=== PATIENT | female | born 1960 | race Caucasian/White ===

== ENCOUNTER → 2016-04-30 | Outpatient (CLI) | payer BC ==
[~2016-04-30] MED LIST: ACHD5005 PO; ALPR.5T PO; AMOX-355 PO; HYDR-3729 PO; IBUP-1780 PO; PRD20T PO
--- NOTE | 2016-04-30 15:51 | Diagnostic Imaging Report ---
INDICATION: Hematuria, feeling ill x 1 week, right-sided lower back pain, evaluate for kidney stones. FINDINGS: A supine view of the abdomen demonstrates no radiopaque calcifications. The bowel gas pattern appears normal. The lung bases are clear. The osseous structures are normal. IMPRESSION: Normal KUB. Dictated by: Dictated on workstation # [id number]
== END ==
LOC: RAD 13:32
PROVIDERS: ATTEND Nurse Practitioner Family
DX: R31.9 Hematuria, unspecified (principal)
CPT/HCPCS: 74000

== ENCOUNTER → 2016-05-02 | Outpatient (CLI) | payer BC ==
--- NOTE | 2016-05-02 11:57 | Diagnostic Imaging Report ---
Transabdominal and transvaginal pelvic ultrasound. INDICATION: Postmenopausal bleeding. FINDINGS: The endometrium thickness is at the upper limits of normal, at 4 mm in thickness. The uterus is 6.5 x 4.5 x 3.5 cm. There is slight heterogeneity in the myometrium with multiple hyperechoic foci and there is a tiny simple-appearing cyst in the posterior myometrium adjacent to endometrium. The findings may relate to adenomyosis. The ovaries are not seen. This could be related to ovarian atrophy or obscured by bowel gas. There is however a simple-appearing cyst in the left adnexa measuring 2.3 x 2.7 x 1.8 cm which may or may not be ovarian in origin. No solid component is identified. IMPRESSION: Uterine findings may relate to adenomyosis. Dictated by: Dictated on workstation # [id number]
== END ==
LOC: RAD 09:56
PROVIDERS: ATTEND Nurse Practitioner Family
DX: N95.0 Postmenopausal bleeding (principal)
CPT/HCPCS: 76830; 76856

== ENCOUNTER 2016-06-12 08:31 | Outpatient (CLI) | payer BC ==
[~2016-06-12] VITALS: Ht 167.6 cm; Wt 69.7 kg
[~2016-06-12 08:31] MED LIST changes: -HYDR-3729 PO; -IBUP-1780 PO
--- OUTSIDE RECORDS SUMMARY | 2016-06-12 08:35 | XMS REPORT | Continuity of Care Document ---
Author Author [facility] Organization [facility] Address Unknown Phone Unavailable Allergies Active Description Code Type Severity Reaction Onset Reported/Identified Relationship to Patient Clinical Status Yes desloratadine [id number] Drug Allergy Unknown N/A 10/26/2012 Yes pseudoephedrine sulfate [id number] Drug Allergy Unknown N/ A 10/26/2012 Medications Problems Date Dx Coded Attending Type Code Diagnosis Diagnosed By 10/29/2012 GREG MACIEL, LARS P Ot 473.0 CHR MAXILLARY SINUSITIS 10/29/2012 GREG MACIEL, LARS P Ot 473.1 CHR FRONTAL SINUSITIS 10/29/2012 GREG MACIEL, LARS Daley Ot 473.2 CHR ETHMOIDAL SINUSITIS 03/03/2014 SIRISHA GUPTA Ot 793.89 09/25/2014 RYAN MONAE Ot 473.9 09/25/2014 GREG MACIEL, LARS P Ot 305.1 09/25/2014 GREG MACIEL, ALRS P Ot 471.8 09/25/2014 GREG MACIEL, LARS P Ot 780.79 09/25/2014 GREG MACIEL, LARS P Ot V72.63 09/25/2014 GREG MACIEL, LARS P Ot V72.81 09/25/2014 GREG MACIEL, LARS P Ot V72.83 09/25/2014 GREG MACIEL, LARS P Ot V74.8 09/25/2014 RUSLAN MACIEL, NATE Real Ot 620.2 09/25/2014 RUSLAN MACIEL, NATE A Ot 627.1 09/25/2014 RUSLAN MACIEL, NATE A Ot 793.5 09/25/2014 JUAN DO, COURTNEY C Ot 620.2 09/25/2014 JUAN DO, COURTNEY C Ot 627.1 09/25/2014 MARTINEZ DO, COURTNEY C Ot 793.5 09/25/2014 JUAN DO, COURTNEY C Ot V16.0 09/25/2014 JUAN DO, COURTNEY C Ot V16.49 09/25/2014 SIRISHA GUPTA TRAINING AND DEVELOPMENT REP Ot V76.12 09/25/2014 SIRISHA GUPTA TRAINING AND DEVELOPMENT REP Ot 793.89 10/13/2014 NATE MERCER MD Ot 793.89 11/03/2014 NATE MERCER MD Ot 611.79 11/03/2014 NATE MERCER MD Ot V58.69 05/02/2015 TEX LITTLEJOHN BERRY PICKER Ot Z12.31 04/30/2016 RYAN MONAE RPA-C Ot 473.9 CHRONIC SINUSITIS NOS 04/30/2016 GREG MACIEL, LARS Daley Ot 305.1 TOBACCO USE DISORDER 04/30/2016 GREG MACIEL, LARS Daley Ot 471.8 NASAL SINUS POLYP NEC 04/30/2016 LARS GARZA MD Ot 780.79 OTH MALAISE FATIGUE 04/30/2016 GREG MACIEL, LARS Daley Ot V72.63 PRE-PROCEDURAL LABORATORY EXAMINATION 04/30/2016 LARS GARZA MD Ot V72.81 [id number] CARDIOVASCULAR 04/30/2016 LARS GARZA MD Ot V72.83 EXAM PRE-OPERATIVE NEC 04/30/2016 LARS GARZA MD Ot V74.8 SCREEN-BACTERIAL DIS NEC 04/30/2016 NATE MERCER MD Ot 620.2 OVARIAN CYST NEC/NOS 04/30/2016 NATE MERCER MD Ot 627.1 POSTMENOPAUSAL BLEEDING 04/30/2016 NATE MERCER MD Ot 793.5 NOSP (ABN) FINDINGS ON RADIOLOGICAL OT 04/30/2016 COURTNEY MARTINEZ DO Ot 620.2 OVARIAN CYST NEC/NOS 04/30/2016 COURTNEY MARTINEZ DO Ot 627.1 POSTMENOPAUSAL BLEEDING 04/30/2016 COURTNEY MARTINEZ DO Ot 793.5 NOSP (ABN) FINDINGS ON RADIOLOGICAL OT 04/30/2016 COURTNEY MARTINEZ DO Ot V16.0 FAMILY HX-GI MALIGNANCY 04/30/2016 COURTNEY MARTINEZ DO Ot V16.49 FAM HX-OTH MALIG NEOPLASM 04/30/2016 SIRISHA GUPTAP Ot V76.12 OTH SCREEN MAMMO-MALIGN NEOPLASM OF JONATHAN 04/30/2016 SIRISHA GUPTAP Ot 793.89 OTH (ABN) FINDINGS ON RADIOLOGICAL EXAMI 04/30/2016 NATE MERCER MD Ot 793.89 OTH (ABN) FINDINGS ON RADIOLOGICAL EXAMI 04/30/2016 NATE MERCER MD Ot 611.79 SYMPTOMS IN BREAST NEC 04/30/2016 NATE MERCER MD Ot V58.69 OTH MED,LT,CURRENT USE 04/30/2016 TEX LITTLEJOHN APRN Ot Z12.31 ENCNTR SCREEN MAMMOGRAM FOR MALIGNANT NE 05/01/2016 TEX LITTLEJOHN BERRY PICKER Ot R31.9 HEMATURIA, UNSPECIFIED 05/02/2016 SIRISHA GUPTA TRAINING AND DEVELOPMENT REP Ot N95.0 POSTMENOPAUSAL BLEEDING 05/03/2016 SIRISHA GUPTA TRAINING AND DEVELOPMENT REP Ot N95.0 POSTMENOPAUSAL BLEEDING 05/05/2016 SIRISHA GUPTA TRAINING AND DEVELOPMENT REP Ot N95.0 POSTMENOPAUSAL BLEEDING 05/14/2016 TEX LITTLEJOHN BERRY PICKER Ot R31.9 HEMATURIA, UNSPECIFIED 05/14/2016 SIRISHA GUPTA TRAINING AND DEVELOPMENT REP Ot N95.0 POSTMENOPAUSAL BLEEDING Procedures Results Encounters ACCT No. Visit Date/Time Discharge Status Pt. Type Provider Facility Loc./Unit Complaint [id number] 10/18/2014 11:01:00 2014 23:59:59 CLS Outpatient NATE MERCER MD [facility] RAD LEFT BREAST POST NIPPLE ABNORMALITY [id number] 09/25/2014 14:09:00 2014 23:59:59 CLS Outpatient NATE MERCER MD [facility] RAD 6 MONTH FOLLOW UP [id number] 02/17/2014 07:43:00 2013 23:59:59 CLS Outpatient SIRISHA GUPTA [facility] RAD ABN MAMMO,CALCIFICATIONS LT BREAST [id number] 02/01/2014 15:27:00 2013 23:59:59 CLS Outpatient SIRISHA GUPTA [facility] RAD SCREENING [id number] 11/22/2013 13:08:00 2013 23:59:59 CLS Outpatient COURTNEY MARTINEZ DO [facility] RAD POSTMENOPAUSAL BLEEDING [id number] 10/13/2013 10:56:00 2013 23:59:59 CLS Outpatient NATE MERCER MD [facility] RAD POST JASON BLEEDING [id number] 10/29/2012 08:59:00 2012 13:27:00 DIS Outpatient LARS GARZA MD [facility] SDC NASAL POLYP [id number] 10/26/2012 09:53:00 2012 23:59:59 CLS Outpatient LARS GARZA MD [facility] PREOP NASAL POLYP [id number] 10/07/2012 15:08:00 2012 23:59:59 CLS Outpatient RYAN MONAE [facility] RAD CHRONIC SINUSITIS [id number] 05/02/2016 09:56:00 ACT Outpatient SIRISHA GUPTA [facility] RAD POST MENOPAUSAL VAGINAL BLEEDING [id number] 04/30/2016 13:32:00 ACT Outpatient TEX LITTLEJOHN APRN [facility] RAD HEMATURIA [id number] 04/24/2015 10:20:00 ACT Outpatient TEX LITTLEJOHN APRN [facility] RAD ROUTINE MAMMOGRAM SCREENING
[2016-06-12 08:52] VITALS: BP 137/91
== END 2016-06-12 11:37 | disposition home or self-care (01) ==
LOC: PREOP 08:31
PROVIDERS: ATTEND Obstetrics & Gynecology
DX: Z01.818 Encounter for other preprocedural examination (principal); Z11.2 Encounter for screening for other bacterial diseases; N95.0 Postmenopausal bleeding
CPT/HCPCS: 87081

== ENCOUNTER 2016-06-16 06:00 | Day surgery (SDC) | payer BC ==
[~2016-06-16] VITALS: Ht 167.6 cm; Wt 69.7 kg
--- OUTSIDE RECORDS SUMMARY | 2016-06-16 06:10 | XMS REPORT | Continuity of Care Document ---
Author Author [facility] Organization [facility] Address Unknown Phone Unavailable Allergies Active Description Code Type Severity Reaction Onset Reported/Identified Relationship to Patient Clinical Status Yes desloratadine [id number] Drug Allergy Unknown N/A 10/26/2012 Yes pseudoephedrine sulfate [id number] Drug Allergy Unknown N/ A 10/26/2012 Medications [...] LARS P Ot 305.1 09/25/2014 GREG MACIEL, LARS P Ot 471.8 09/25/2014 GREG MACIEL, LARS [...] JUAN DO, COURTNEY C Ot 620.2 09/25/2014 JAUN DO, COURTNEY C Ot 627.1 09/25/2014 MARTINEZ DO, COURTNEY C Ot 793.5 09/25/2014 JUAN DO, COURTNEY C Ot V16.0 09/25/2014 JUAN DO, COURTNEY C Ot V16.49 09/25/2014 SIRISHA GUPTA STOCKROOM ATTENDANT Ot V76.12 09/25/2014 SIRISHA GUPTA STOCKROOM ATTENDANT Ot 793.89 10/13/2014 NATE MERCER MD Ot 793.89 11/03/2014 NATE MERCER MD Ot 611.79 11/03/2014 NATE MERCER MD Ot V58.69 05/02/2015 TEX LITTLEJOHN PELLET MACHINE OPERATOR Ot Z12.31 04/30/2016 RYAN MONAE RPA-C Ot 473.9 CHRONIC SINUSITIS NOS 04/30/2016 GREG MACIEL, LARS Daley Ot 305.1 TOBACCO USE DISORDER 04/30/2016 GREG MACIEL, LARS Daley Ot 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.8 NASAL SINUS POLYP NEC 04/30/2016 LARS GARZA MD Ot 780.79 OTH MALAISE FATIGUE 04/30/2016 GREG MACIEL, LARS Daley Ot V72.63 PRE-PROCEDURAL LABORATORY EXAMINATION 04/30/2016 LARS GARZA MD Ot V72.81 [id number] CARDIOVASCULAR 04/30/2016 LARS GARZA MD Ot V72.83 [...] MAMMOGRAM FOR MALIGNANT NE 05/01/2016 TEX LITTLEJOHN PELLET MACHINE OPERATOR Ot R31.9 HEMATURIA, UNSPECIFIED 05/02/2016 SIRISHA GUPTA STOCKROOM ATTENDANT Ot N95.0 POSTMENOPAUSAL BLEEDING 05/03/2016 SIRISHA GUPTA STOCKROOM ATTENDANT Ot N95.0 POSTMENOPAUSAL BLEEDING 05/05/2016 SIRISHA GUPTA STOCKROOM ATTENDANT Ot N95.0 POSTMENOPAUSAL BLEEDING 05/14/2016 TEX LITTLEJOHN PELLET MACHINE OPERATOR Ot R31.9 HEMATURIA, UNSPECIFIED 05/14/2016 SIRISHA GUPTA STOCKROOM ATTENDANT Ot N95.0 POSTMENOPAUSAL BLEEDING Procedures Results Test Result Range Methicillin resistant Staphylococcus aureus (MRSA) screening culture - 09:30 Methicillin resistant Staphylococcus aureus (MRSA) screening culture NEG NRG Encounters ACCT No. Visit Date/Time Discharge Status Pt. Type Provider Facility Loc./Unit Complaint [id number] 06/12/2016 08:31:00 2016 11:37:00 DIS Outpatient TEO MACIEL, RONNY Shea [facility] PREOP PMB [id number] 10/18/2014 11:01:00 2014 23:59:59 CLS Outpatient NATE MERCER MD [facility] RAD LEFT BREAST POST NIPPLE ABNORMALITY [id number] 09/25/2014 14:09:00 2014 23:59:59 CLS Outpatient NATE MERCER MD [facility] RAD 6 MONTH FOLLOW UP [id number] 02/17/2014 07:43:00 2013 23:59:59 CLS Outpatient SIRISHA GUPTA [facility] RAD ABN MAMMO,CALCIFICATIONS LT BREAST [id number] 02/01/2014 15:27:00 2013 23:59:59 CLS Outpatient SIRISHA GUPTA [facility] RAD SCREENING [id number] 11/22/2013 13:08:00 2013 23:59:59 CLS Outpatient MARTINEZKathi FRANCOIS COURTNEY C [facility] RAD POSTMENOPAUSAL BLEEDING [id number] 10/13/2013 10:56:00 2013 23:59:59 CLS Outpatient NATE MERCER MD [facility] RAD POST JASON BLEEDING [id number] 10/29/2012 08:59:00 2012 13:27:00 DIS Outpatient LASR GARZA MD [facility] NASAL POLYP [id number] 10/26/2012 09:53:00 2012 23:59:59 CLS Outpatient LARS GARZA MD [facility] PREOP NASAL POLYP [id number] 10/07/2012 15:08:00 2012 23:59:59 CLS Outpatient RYAN MONAE [facility] RAD CHRONIC SINUSITIS [id number] 06/16/2016 06:00:00 ACT Outpatient TEO MACIEL, RONNY Shea [facility] PMB [id number] 05/02/2016 09:56:00 ACT Outpatient SIRISHA GUPTA [facility] RAD POST MENOPAUSAL VAGINAL BLEEDING [id number] 04/30/2016 13:32:00 ACT Outpatient TEX LITTLEJOHN APRN [facility] RAD HEMATURIA [id number] 04/24/2015 10:20:00 ACT Outpatient TEX LITTLEJOHN APRN [facility] RAD ROUTINE MAMMOGRAM SCREENING
--- OUTSIDE RECORDS SUMMARY | 2016-06-16 06:11 | XMS REPORT | Continuity of Care Document ---
Author Author [facility] Organization [facility] Address Unknown Phone Unavailable Allergies Active Description Code Type Severity Reaction Onset Reported/Identified Relationship to Patient Clinical Status Yes desloratadine [id number] Drug Allergy Unknown N/A 10/26/2012 Yes pseudoephedrine sulfate [id number] Drug Allergy Unknown N/ A 10/26/2012 Medications [...] NATE A Ot 627.1 09/25/2014 RUSLAN MACIEL, ANTE A Ot 793.5 09/25/2014 JUAN DO, COURTNEY C Ot 620.2 09/25/2014 JUAN DO, COURTNEY C Ot 627.1 09/25/2014 MARTINEZ DO, COURTNEY C Ot 793.5 09/25/2014 JUAN DO, COURTNEY C Ot V16.0 09/25/2014 JUAN DO, COURTNEY C Ot V16.49 09/25/2014 SIRISHA GUPTA AUDIT MANAGER Ot V76.12 09/25/2014 SIRISHA GUPTA AUDIT MANAGER Ot 793.89 10/13/2014 NATE MERCER MD Ot 793.89 11/03/2014 NATE MERCER MD Ot 611.79 11/03/2014 NATE MERCER MD Ot V58.69 05/02/2015 TEX LITTLEJOHN THRASHER FEEDER Ot Z12.31 04/30/2016 RYAN MONAE RPA-C Ot 473.9 CHRONIC SINUSITIS NOS 04/30/2016 GREG MACIEL, LARS Daley Ot 305.1 TOBACCO USE DISORDER 04/30/2016 GREG MACIEL, LARS Daley Ot 471.8 NASAL SINUS POLYP NEC 04/30/2016 LARS GARZA MD Ot 780.79 OTH MALAISE FATIGUE 04/30/2016 GREG MACIEL, LARS Daley Ot V72.63 PRE-PROCEDURAL LABORATORY EXAMINATION 04/30/2016 LARS GARZA MD Ot V72.81 [id number] CARDIOVASCULAR 04/30/2016 LARS GARZA MD Ot V72.83 [...] MAMMOGRAM FOR MALIGNANT NE 05/01/2016 TEX LITTLEJOHN THRASHER FEEDER Ot R31.9 HEMATURIA, UNSPECIFIED 05/02/2016 SIRISHA GUPTA AUDIT MANAGER Ot N95.0 POSTMENOPAUSAL BLEEDING 05/03/2016 SIRISHA GUPTA AUDIT MANAGER Ot N95.0 POSTMENOPAUSAL BLEEDING 05/05/2016 SIRISHA GUPTA AUDIT MANAGER Ot N95.0 POSTMENOPAUSAL BLEEDING 05/14/2016 TEX LITTLEJOHN THRASHER FEEDER Ot R31.9 HEMATURIA, UNSPECIFIED 05/14/2016 SIRISHA GUPTA AUDIT MANAGER Ot N95.0 POSTMENOPAUSAL BLEEDING Procedures Results Test Result Range Methicillin resistant Staphylococcus aureus (MRSA) screening culture - 09:30 Methicillin resistant Staphylococcus aureus (MRSA) screening culture NEG NRG Encounters ACCT No. Visit Date/Time Discharge Status Pt. Type Provider Facility Loc./Unit Complaint [id number] 06/12/2016 08:31:00 2016 11:37:00 DIS Outpatient TEO MACIEL, RONNY Shea [facility] PREOP PMB [id number] 10/18/2014 11:01:00 2014 23:59:59 CLS Outpatient NATE MERCER MD [facility] RAD LEFT BREAST POST NIPPLE ABNORMALITY [id number] 09/25/2014 14:09:00 2014 23:59:59 CLS Outpatient NATE MERCER MD [facility] RAD 6 MONTH FOLLOW UP [id number] 02/17/2014 07:43:00 2013 23:59:59 CLS Outpatient SIRISHA GUPTA [facility] RAD ABN MAMMO,CALCIFICATIONS LT BREAST [id number] 02/01/2014 15:27:00 2013 23:59:59 CLS Outpatient SIRISHA GUPTA [facility] RAD SCREENING [id number] 11/22/2013 13:08:00 2013 23:59:59 CLS Outpatient MARTINEZKathi FRANCOIS COURTNEY C [facility] RAD POSTMENOPAUSAL BLEEDING [id number] 10/13/2013 10:56:00 2013 23:59:59 CLS Outpatient NATE MERCER MD [facility] RAD POST JASON BLEEDING [id number] 10/29/2012 08:59:00 2012 13:27:00 DIS Outpatient LARS GARZA MD [facility] NASAL POLYP [id number] 10/26/2012 09:53:00 2012 23:59:59 CLS Outpatient LARS GARZA MD [facility] PREOP NASAL POLYP [id number] 10/07/2012 15:08:00 2012 23:59:59 CLS Outpatient RYAN MONAE [facility] RAD CHRONIC SINUSITIS [id number] 06/16/2016 06:00:00 ACT Outpatient TEO MACIEL, RONNY Shea [facility] PMB [id number] 05/02/2016 09:56:00 ACT Outpatient SIRISHA GUPTA [facility] RAD POST MENOPAUSAL VAGINAL BLEEDING [id number] 04/30/2016 13:32:00 ACT Outpatient TEX LITTLEJOHN APRN [facility] RAD HEMATURIA [id number] 04/24/2015 10:20:00 ACT Outpatient TEX LITTLEJOHN APRN [facility] RAD ROUTINE MAMMOGRAM SCREENING
[2016-06-16] MEDS: LACTATED RINGERS 1,000 ML IV PRN ×2 (06:15→08:26)
[2016-06-16 06:20] VITALS: BP 155/96
[2016-06-16] MEDS ORDERED: proPOfol 200 MG/20 ML (DIPRIVAN) VIAL IV ONE (07:32)
[2016-06-16] MEDS ORDERED: fentaNYL INJECTION 100 MCG/2 ML AMP ONE (07:32)
[2016-06-16] MEDS ORDERED: LIDOCAINE PF 2% 10 ML (XYLOCAINE) AMP ONE (07:32)
[2016-06-16] MEDS ORDERED: MIDAZOLAM 2 MG/2 ML (VERSED) VIAL ONE (07:32)
[2016-06-16] MEDS ORDERED: ONDANSETRON 4 MG/2 ML (SDV) Z0FRAN ONE (07:32)
[2016-06-16] MEDS ORDERED: SEVOFLURANE (ULTANE) 15 ML INHAL SOLN ONE (07:32)
[2016-06-16] MEDS ORDERED: DEXAMETHASONE PF 10 MG/ML (DECADRON) VIAL ONE (07:32)
[2016-06-16] MEDS ORDERED: LACTATED RINGERS 1,000 ML IV ONE (07:32)
--- NOTE | 2016-06-16 07:34 | Progress Note-Pre Operative ---
Pre-Operative Progress Note H&P Reviewed The H&P was reviewed, patient examined and no changes noted. Date H&P Reviewed: Jun 16, 2016 Time H&P Reviewed: 07:34 Pre-Operative Diagnosis: Recurrent postmenopausal bleeding RONNY BRUCE MD Jun 16, 2016 07:34
[2016-06-16] MEDS ORDERED: IBUP-1780 PO (07:36)
[2016-06-16] MEDS ORDERED: HYDR-3729 PO (07:36)
--- NOTE | 2016-06-16 07:37 | Discharge Inst-Women's Service ---
Discharge Inst-Women's Serv Depart Medication/Instructions New, Converted or Re-Newed RX: RX on Chart Final Diagnosis Recurrent postmenopausal bleeding Consults/Follow Up Additional Follow Up: Yes Orders/Referrals 10-[address] Fonseca Activity Activity: Activity as Tolerated Driving Instructions: No Driving for 24 Hours NO SMOKING: NO SMOKING Nothing Inside Vagina: No Douching, No [place], No Tampons Other Activity Nothing in the vagina for 7 days Diet Discharge Diet: No Restrictions Symptoms to Report to : Bleeding Excessive, Pain Increased, Fever Over 101 Degrees F, Vaginal Bleeding Increase, Dizziness/Fainting, Nausea/Vomiting, Shortness of Breath For Any Problems or Questions: Contact Your Physician RONNY FONSECA MD Jun 16, 2016 07:37
[2016-06-16] MEDS ORDERED: PHENYLEPHRINE 100 MCG/ML 10 ML (ANESTHESIA) SYR ONE (07:44)
[2016-06-16] MEDS ORDERED: GLYCOPYRROLATE 0.2 MG/ML (ROBINUL) 2 ML VIAL ONE (07:52)
--- NOTE | 2016-06-16 08:14 | OB/GYN Operative Report ---
Operative Report Date of Procedure: June 16, 2016 Preoperative Diagnosis: Recurrent postmenopausal bleeding Postoperative Diagnosis: Same Procedure: Hysteroscopy, dilatation and curettage Surgeon: Ronny Bruce MD Specimens: Endometrial curettings to pathology Estimated Blood Loss: Minimal Anesthesia: General Indications for Procedure: This is a 56 y/o postmenopausal female with recurrent bleeding. Endometrial biopsy was obtained and benign two years prior by Dr. Leigh. However, patient noted another episode. Ultrasound was performed which showed an endometrial stripe of 4mm. Patient was counseled on risks, benefits and alternatives and elected for evaluation with hysteroscopy, D&C. Findings: Atrophic appearing endometrial cavity with bilateral tubal ostia visualized. No lesions noted. No vaginal, vulvar or cervical lesions noted. Procedure: The patient was taken to the operating room where sequential compression devices were placed on the bilateral lower extremities. Intravenous fluids were running. General anesthesia was obtained without difficulty. She was repositioned in the dorsal lithotomy position with the use of Yellofin stirrups. She was prepped and draped in the typical sterile fashion. The bladder was emptied with a straight catheterization. A weighted speculum was placed in the vagina. A right angle was utilized to elevate the vaginal tissue anteriorly. An Allis was placed on the anterior lip of the cervix. The uterus was sounded to 6cm. Chopra dilators were used to dilate the cervix to 17mm. The Truclear 5 mm hysteroscope was then advanced into the uterine cavity under direct visualization. The aforementioned findings were noted; no intrinsic lesions were seen. The hysteroscope was removed. A sharp circumferential curettage was performed with a small sharp curette; this was sent to pathology. All instruments were removed from the vagina; the anterior lip of the cervix was hemostatic after Allis removal. The patient tolerated the procedure well. Instrument counts were correct. The patient was taken to recovery in stable condition. Complications: None Disposition: Home, stable RONNY BRUCE MD Jun 16, 2016 08:14
[2016-06-16] MEDS ORDERED: D5 LR IV SOLUTION 1,000 ML IV SCH (08:21)
[2016-06-16] MEDS ORDERED: morphine INJ 10 MG/ML 1ML (SYR OR VIAL) ONE (08:23)
[2016-06-16] MEDS ORDERED: MEPERIDINE (DEMEROL) INJ 50 MG/ML IVP PRN (08:30)
[2016-06-16] MEDS ORDERED: ONDANSETRON 4 MG/2 ML (SDV) Z0FRAN IVP PRN (08:30)
[2016-06-16] MEDS ORDERED: KETOROLAC 30 MG/ML VIAL IVP ONE (08:30)
[2016-06-16] MEDS: morphine INJ 10 MG/ML 1ML (SYR OR VIAL) IVP PRN ×2 (08:33→08:42)
[2016-06-16 09:10] VITALS: BP 114/78
[2016-06-16 09:40] VITALS: BP 110/75
[2016-06-16 10:10] VITALS: BP 123/85
== END 2016-06-16 10:10 | disposition home or self-care (01) ==
LOC: SDC 06:00
PROVIDERS: ATTEND Obstetrics & Gynecology
DX: N95.0 Postmenopausal bleeding (principal); F17.210 Nicotine dependence, cigarettes, uncomplicated; Z80.49 Family history of malignant neoplasm of other genital organs
CPT/HCPCS: 84703; 88305

== ENCOUNTER 2019-11-30 11:50 | Emergency (ER) | payer BC ==
[~2019-11-30] VITALS: Ht 167.7 cm; Wt 72.7 kg
[~2019-11-30 11:50] MED LIST changes: +HYDR-3729 PO; +IBUP-1780 PO
[2019-11-30] MEDS ORDERED: ASPIRIN 81 MG CHEW (CHILDREN'S ASA) PO ONE (12:00)
[2019-11-30 12:08] LABS: BASOPHILS % (AUTO) 0 % (0-10); EOSINOPHILS # (AUTO) 0.2 10^3/uL (0.0-0.3); EOSINOPHILS % (AUTO) 2 % (0-10); HEMATOCRIT 45 % (35-52); HEMOGLOBIN 15.3 G/DL (11.5-16.0); LYMPHOCYTES # (AUTO) 1.7 X 10^3 (1.0-4.0); LYMPHOCYTES % (AUTO) 20 % (12-44); MEAN CORPUSCULAR HEMOGLOBIN 32 PG (25-34); MEAN CORPUSCULAR HGB CONC 34 G/DL (32-36); MEAN CORPUSCULAR VOLUME 94 FL (80-99); MEAN PLATELET VOLUME 11.2 FL (7.4-10.4); MONOCYTES # (AUTO) 0.7 X 10^3 (0.0-1.0); MONOCYTES % (AUTO) 8 % (0-12); NEUTROPHILS # (AUTO) 6.2 X 10^3 (1.8-7.8); NEUTROPHILS % (AUTO) 70 % (42-75); PLATELET COUNT 189 10^3/uL (130-400); RED CELL DISTRIBUTION WIDTH 13.4 % (10.0-14.5); WHITE BLOOD COUNT 8.8 10^3/uL (4.3-11.0)
[2019-11-30] MEDS ORDERED: KETOROLAC 30 MG/ML VIAL IVP STA (12:13)
--- NOTE | 2019-11-30 12:13 | ED Chest Pain ---
General Chief Complaint: Chest Pain Stated Complaint: CHEST PAIN Nursing Triage Note: Pt ambulates to room #3 with c/o medial chest discomfort. Pt reports onset of discomfort to be 1hr uniform [employer] while seated at her desk at work. Pt reports to taken 200mg advil et 0.5mg xanax upon onset of s/s with no relief. Pt describes discomfort as "pressure" et denies radiation. A&OX4. Nursing Sepsis Screen: No Definite Risk Source: patient Exam Limitations: no limitations (RYANNE ESPINOZA MD) History of Present Illness Date Seen by Provider: Nov 30, 2019 Time Seen by Provider: 11:58 Initial Comments Here with report of left sided chest discomfort that she describes as a pressure and being a 5 out of 10. This is been going on for about an hour. She tried 200 mg of ibuprofen as well as a 0.5 mg Xanax to help and that did not help. She states that she was anxious because she had to go back to work and one of her coworkers had recently been discharge is and she is worried about COVID-19. Does not otherwise have sick contacts. Denies nausea, vomiting or diarrhea. Denies shortness of breath but does admit to being a heavy smoker. Denies family history of cardiac problems. Pain has remained the same throughout. Timing/Duration: 1 hour, constant Severity/Quality: moderate, pressure Location: central Radiation: no radiation Activities at Onset: none Prior CP/Workup: no prior chest pain, no prior cardiac workup Modifying Factors: worse with lying down; improves with rest ASA po PHARMACOVIGILANCE SPECIALIST: No NTG SL PHARMACOVIGILANCE SPECIALIST: No Associated Symptoms: No abdominal pain, No back pain, No diaphoresis, No dizziness, No edema, No fever/chills, No heartburn, No nausea/vomiting, No shortness of breath, No weakness (RYANNE ESPINOZA MD) Allergies and Home Medications Allergies Coded Allergies: desloratadine (Unverified Adverse Reaction, 10/26/12) BLACKED OUT AND POSSIBLY HAD A SEIZURE pseudoephedrine sulfate (Unverified Adverse Reaction, 10/26/12) BLACKED OUT AND POSSIBLY HAD A SEIZURE Home Medications Alprazolam 0.5 Mg Tablet, 0.25-0.5 MG PO Q12H PRN, (Reported) PRN ANXIETY Hydrocodone/Acetaminophen 1 Each Tablet, 1-2 EACH PO Q4H PRN for PAIN Prescribed by: RONNY BRUCE on 06/16/16735 Ibuprofen 800 Mg Tablet, 800 MG PO Q8H PRN for PAIN Prescribed by: RONNY BRUCE on 06/16/1636 Patient Home Medication List Home Medication List Reviewed: Yes (RYANNE ESPINOZA MD) Review of Systems Review of Systems Constitutional: see HPI; No chills, No fever EENTM: No Nose Pain, No Throat Pain Respiratory: Denies Cough, Denies Shortness of Air Cardiovascular: Chest Pain; Denies Edema Gastrointestinal: Denies Diarrhea, Denies Nausea, Denies Vomiting Genitourinary: No Symptoms Reported Musculoskeletal: no symptoms reported Psychiatric/Neurological: Anxiety; Denies Weakness (RYANNE ESPINOZA MD) All Other Systems Reviewed Negative Unless Noted: Yes (RYANNE ESPINOZA MD) Past Qwsubzh-Bfigan-Exurzm Hx Past Med/Social Hx: Reviewed Nursing Past Med/Soc Hx (RYANNE ESPINOZA MD) Patient Social History Alcohol Use: Denies Use Recreational Drug Use: No Smoking Status: Heavy Tobacco Smoker Type Used: Cigarettes Recent Foreign Travel: No Contact w/Someone Who Travel: No Recent Infectious Disease Expo: No Recent Hopitalizations: No (RYANNE ESPINOZA MD) Seasonal Allergies Seasonal Allergies: No (RYANNE ESPINOZA MD) Past Medical History Surgeries: No Respiratory: No Cardiac: No Neurological: No Reproductive Disorders: Yes (POST MENOPAUSAL BLEEDING) Sexually Transmitted Disease: No HIV/AIDS: No Gastrointestinal: No Musculoskeletal: No Endocrine: No Loss of Vision: Bilateral Hearing Impairment: Denies Anxiety Adverse Reaction/Blood Tranf: No (RYANNE ESPINOZA MD) Family Medical History Reviewed Nursing Family Hx (RYANNE ESPINOZA MD) Cancer (RYANNE ESPINOZA MD) Physical Exam Vital Signs Vital Signs - First Documented 11/30/19 11:50 Pulse 95 Resp 18 B/P (MAP) 180/102 (128) Pulse Ox 94 O2 Delivery Room Air ([facility]) Vital Signs Capillary Refill : Less Than 3 Seconds (RYANNE ESPINOZA MD) Height, Weight, BMI Height: 5'6.00" Weight: 153lbs. 9.0oz. 69.995014ns; 25.00 BMI Method: General Appearance: No Apparent Distress, WD/WN HEENT: PERRL/EOMI, Pharynx Normal Neck: Non Tender, Supple Respiratory: Lungs Clear, Normal Breath Sounds Cardiovascular: Regular Rate, Rhythm, No Murmur Gastrointestinal: Non Tender, Soft Extremity: Normal Range of Motion, Non Tender Neurologic/Psychiatric: Alert, Oriented x3 Skin: Normal Color (RYANNE ESPINOZA MD) Progress/Results/Core Measures Results/Orders Lab Results Laboratory Tests Test 11/30/19 11:56 11/30/19 13:38 Range/Units White Blood Count 8.8 4.3-11.0 10^3/uL Red Blood Count 4.80 4.35-5.85 10^6/uL Hemoglobin 15.3 11.5-16.0 G/DL Hematocrit 45 35-52 % Mean Corpuscular Volume 94 80-99 FL Mean Corpuscular Hemoglobin 32 25-34 PG Mean Corpuscular Hemoglobin Concent 34 32-36 G/DL Red Cell Distribution Width 13.4 10.0-14.5 % Platelet Count 189 130-400 10^3/uL Mean Platelet Volume 11.2 H 7.4-10.4 FL Neutrophils (%) (Auto) 70 42-75 % Lymphocytes (%) (Auto) 20 12-44 % Monocytes (%) (Auto) 8 0-12 % Eosinophils (%) (Auto) 2 0-10 % Basophils (%) (Auto) 0 0-10 % Neutrophils # (Auto) 6.2 1.8-7.8 X 10^3 Lymphocytes # (Auto) 1.7 1.0-4.0 X 10^3 Monocytes # (Auto) 0.7 0.0-1.0 X 10^3 Eosinophils # (Auto) 0.2 0.0-0.3 10^3/uL Basophils # (Auto) 0.0 0.0-0.1 10^3/uL Prothrombin Time 12.0 L 12.2-14.7 SEC INR Comment 0.9 0.8-1.4 Activated Partial Thromboplast Time 30 24-35 SEC D-Dimer 0.44 0.00-0.49 UG/ML Sodium Level 141 135-145 MMOL/L Potassium Level 4.1 3.6-5.0 MMOL/L Chloride Level 105 98-107 MMOL/L Carbon Dioxide Level 25 21-32 MMOL/L Anion Gap 11 5-14 MMOL/L Blood Urea Nitrogen 16 7-18 MG/DL Creatinine 0.74 0.60-1.30 MG/DL Estimat Glomerular Filtration Rate > 60 BUN/Creatinine Ratio 22 Glucose Level 96 70-105 MG/DL Calcium Level 9.8 8.5-10.1 MG/DL Corrected Calcium 8.5-10.1 MG/DL Magnesium Level 2.3 1.6-2.4 MG/DL Total Bilirubin 0.7 0.1-1.0 MG/DL Aspartate Amino Transf (AST/SGOT) 23 5-34 U/L Alanine Aminotransferase (ALT/SGPT) 16 0-55 U/L Alkaline Phosphatase 79 40-136 U/L Myoglobin 19.8 10.0-92.0 NG/ML Troponin I < 0.028 < 0.028 <0.028 NG/ML B-Type Natriuretic Peptide 12.4 <100.0 PG/ML Total Protein 7.5 6.4-8.2 GM/DL Albumin 4.6 H 3.2-4.5 GM/DL ([facility] Medications Given in ED Current Medications Medications Dose Ordered Sig/Kurt Route Start Time Stop Time Status Last Admin Dose Admin Aspirin 324 mg ONCE ONCE PO 11/30/19 12:00 11/30/19 12:01 DC 11/30/19 11:59 324 MG Fentanyl Citrate 50 mcg ONCE ONCE IVP 11/30/19 13:15 11/30/19 13:16 DC 11/30/19 13:21 50 MCG Sucralfate 1 gm ONCE ONCE PO 11/30/19 13:15 11/30/19 13:16 DC 11/30/19 13:21 1 GM [facility] Vital Signs/I&O 11/30/19 11/30/19 11:50 11:55 Pulse 95 Resp 18 B/P (MAP) 180/102 (128) Pulse Ox 94 O2 Delivery Room Air Room Air ([facility] Blood Pressure Mean: 128 Progress Progress Note : Progress Note Seen and evaluated. IV, labs, EKG and chest x-ray ordered. ASA 324 mg by mouth. Toradol 15 mg IV. Monitor patient. Repeat troponin ordered and negative. Pain- free. Discharged home with return precautions. Patient verbalize understanding instructions and agreement with plan. (RYANNE ESPINOZA MD) Initial ECG Impression Date: Nov 30, 2019 Initial ECG Impression Time: 11:58 Initial ECG Rate: 89 Initial ECG Rhythm: Normal Sinus Initial ECG Impression: Normal Initial ECG Comparisson: No Previous ECG Available Comment Sinus rhythm with normal axis. No evidence of ST elevation [place]. Similar to previous of 26 October 2012. Interpreted by me. (RYANNE ESPINOZA MD) Diagnostic Imaging Diagonstic Imaging: Xray Plain Films/CT/US/NM/MRI: chest Comments [facility] [address] [place], [place] NAME: FLOR MARTÍNEZ [facility] REC#: [id number] PT STATUS: REG ER : 1960 PHYSICIAN: TYLER SEO APRN ADMIT DATE: 11/30/19/ER Draft Date of Exam:11/30/19 CHEST 1 VIEW, AP/PA ONLY INDICATION: Chest pain. TECHNIQUE: Single view chest 12 9:00 PM. CORRELATION STUDY: 10/26/2012 FINDINGS: The heart size, mediastinal configuration and pulmonary vascularity are within normal limits. The lungs are clear with no consolidating infiltrate. There is no significant effusion or pneumothorax. IMPRESSION: 1. Negative for acute abnormality of the chest. Dictated on workstation # [id number] Dict: 11/30/19 1236 Trans: 11/30/19 1237 DO [id number] Interpreted by: YAHIR ESPINAL DO Electronically signed by: (RYANNE ESPINOZA MD) Diagonstic Imaging: [facility]ray [facility]) Departure Impression Primary Impression: Chest pain Qualified Codes: R07.9 - Chest pain, unspecified Disposition: 01 HOME, SELF-CARE Condition: Stable Departure-Patient Inst. Decision time for Depature: 14:34 (RYANNE ESPINOZA MD) Referrals: NATE MERCER MD (PCP/Family) Primary Care Physician Patient Instructions: Chest Pain (DC) RYANNE ESPINOZA MD Nov 30, 2019 12:13 DA GALLEGOS [employer] [facility] Nov 30, 2019 14:33
[2019-11-30 12:21] LABS: INR 0.9 (0.8-1.4)
[2019-11-30 12:28] LABS: ALANINE AMINOTRANSFERASE 16 U/L (0-55); ALBUMIN 4.6 GM/DL (3.2-4.5); ALKALINE PHOSPHATASE 79 U/L (40-136); BILIRUBIN,TOTAL 0.7 MG/DL (0.1-1.0); BUN/CREATININE RATIO 22; CALCIUM 9.8 MG/DL (8.5-10.1); CARBON DIOXIDE 25 MMOL/L (21-32); CHLORIDE 105 MMOL/L (98-107); CREATININE SERUM 0.74 MG/DL (0.60-1.30); GFR ESTIMATED > 60; GLUCOSE 96 MG/DL (70-105); MAGNESIUM 2.3 MG/DL (1.6-2.4); POTASSIUM 4.1 MMOL/L (3.6-5.0); SODIUM 141 MMOL/L (135-145); TOTAL PROTEIN 7.5 GM/DL (6.4-8.2)
--- NOTE | 2019-11-30 12:37 | Diagnostic Imaging Report ---
INDICATION: Chest pain. TECHNIQUE: Single view chest 12 9:00 PM. CORRELATION STUDY: 10/26/2012 FINDINGS: The heart size, mediastinal configuration and pulmonary vascularity are within normal limits. The lungs are clear with no consolidating infiltrate. There is no significant effusion or pneumothorax. IMPRESSION: 1. Negative for acute abnormality of the chest. Dictated by: Dictated on workstation # [id number]
[2019-11-30] MEDS ORDERED: FAMOTIDINE 20MG/2ML IV (PEPCID) IV STA (12:55)
[2019-11-30] MEDS ORDERED: ANTACID SUSP 30 ML UDC (MYLANTA) PO ONE (13:00)
[2019-11-30] MEDS ORDERED: LIDOCAINE 2% VISCOUS 15 ML UDC PO ONE (13:00)
[2019-11-30] MEDS ORDERED: fentaNYL INJECTION 100 MCG/2 ML AMP IVP ONE (13:15)
[2019-11-30] MEDS ORDERED: SUCRALFATE 1 GM (CARAFATE) TAB PO ONE (13:15)
[2019-11-30 14:36] VITALS: BP 126/78
== END 2019-11-30 14:36 | disposition home or self-care (01) ==
LOC: EDUNIT# 11:50 → ER 11:51
DX: R07.89 Other chest pain (principal); F41.9 Anxiety disorder, unspecified; F17.210 Nicotine dependence, cigarettes, uncomplicated; Z88.8 Allergy status to other drugs, medicaments and biological substances
CPT/HCPCS: 36415; 71045; 80053; 83735; 83874; 83880; 84484; 85025; 85379; 85610; 85730; 93005; 93041; 96374; 96375

== ENCOUNTER → 2019-12-15 | Outpatient (CLI) | payer BC | LOC: CARD 12:00 | PROVIDERS: ATTEND Internal Medicine Cardiovascular Disease | DX: I10 Essential (primary) hypertension (principal); R07.9 Chest pain, unspecified | CPT/HCPCS: 93306 ==

== ENCOUNTER → 2019-12-21 | Outpatient (CLI) | payer BC ==
[~2019-12-21] VITALS: Ht 167 cm; Wt 72.0 kg
[~2019-12-21] MED LIST changes: +CATHETER FLUSH 10 ML SYR IV PRN; +REGADENOSON 0.4 MG/5 ML SYR (LEXISCAN) IV ONE
[2019-12-21 09:24] VITALS: BP 175/97
--- NOTE | 2019-12-21 13:07 | Cardiology Stress Test Report ---
Stress Test Report Date of Procedure/Referring: Date of Procedure: Dec 21, 2019 PCP Anival Conklin MD Admitting Physician Kirstie Montelongo MD Indications: Chest pain Baseline Heart Rate: 82 Baseline Blood Pressure: Blood Pressure Systolic: 175 Blood Pressure Diastolic: 97 Baseline Vitals Vital Signs Date Time Temp Pulse Resp B/P (MAP) Pulse Ox O2 Delivery O2 Flow Rate FiO2 12/21/19 09:24 100 18 175/97 (123) 97 Room Air Baseline EKG: Baseline EKG: sinus rhythm Summary After explaining the procedure to the patient, she signed a consent and then brought to the stress nuclear laboratory. Patient received 0.4 mg Lexiscan for stress test, ECG, heart rate and blood pressure were monitored continuously. Resting and stress dose of radio tracer were injected, imaging was acquired and reviewed in short axis, horizontal long axis and vertical long axis views. TID: 1.12 SSS: 4 SDS: 4 EF: 65 1. Patient tolerated Lexiscan well 2. Diaphragmatic attenuation with typical male pattern, no significant ischemia or infarction on SPECT images 3. Occasional PVC/ventricular couplets noted during test 4. Normal left ventricular size with mild EF 44 percent ANIVAL CONKLIN MD Dec 21, 2019 13:07
== END ==
LOC: CARD 08:00
PROVIDERS: ATTEND Internal Medicine Cardiovascular Disease
DX: I10 Essential (primary) hypertension (principal); R07.9 Chest pain, unspecified
CPT/HCPCS: 78452; 93017; A9502

== ENCOUNTER → 2020-06-11 | Outpatient (CLI) | payer BC ==
[~2020-06-11] MED LIST changes: -CATHETER FLUSH 10 ML SYR IV PRN; -REGADENOSON 0.4 MG/5 ML SYR (LEXISCAN) IV ONE
--- NOTE | 2020-06-11 17:15 | Diagnostic Imaging Report ---
EXAMINATION: Left shoulder 2 or more views HISTORY: Left shoulder pain. COMPARISON: None available. FINDINGS: Alignment is normal. No fracture is seen. Glenohumeral and acromioclavicular joint spaces are normal. IMPRESSION: 1. No fracture is seen in the left shoulder. Dictated by: Dictated on workstation # [id number]
--- NOTE | 2020-06-11 18:21 | Diagnostic Imaging Report ---
INDICATION: Left shoulder pain. COMPARISON: Left shoulder radiographs performed concurrently. TECHNIQUE: Two views of the clavicles are obtained with and without weights. FINDINGS AND IMPRESSION: 1. Without weights, the AC joints are symmetric and without features of AC joint injury. No fracture in the clavicles. 2. When weights are held by the patient, there is no abnormal widening of the AC joints. Dictated by: Dictated on workstation # [id number]
== END ==
LOC: RAD 13:11
PROVIDERS: ATTEND Nurse Practitioner Family
DX: M25.512 Pain in left shoulder (principal)
CPT/HCPCS: 73030; 73050